=== PATIENT | male | born 1990 | race Two or more races ===

== ENCOUNTER 2017-07-18 14:27 | Inpatient (IN) | payer OTHER ==
[2017-07-18] VITALS (7 sets, daily range): BP systolic 134–166; BP diastolic 87–104
[~2017-07-18] VITALS: Ht 180.3 cm; Wt 83.9 kg
[2017-07-18 14:51] LABS: BASOPHILS % (AUTO) 0.9 % (0.0-2.0); LYMPHOCYTES % (AUTO) 25.2 % (20.0-45.0); MEAN CORPUSCULAR HEMOGLOBIN 31.4 PG (27.0-31.0); MEAN CORPUSCULAR HGB CONC 35.8 G/DL (32.0-36.0); MEAN CORPUSCULAR VOLUME 88 FL (80-99); MEAN PLATELET VOLUME 6.7 FL (6.5-10.1); MONOCYTES % (AUTO) 12.7 % (1.0-10.0); NEUTROPHILS % (AUTO) 60.3 % (45.0-75.0); PLATELET COUNT 215 K/UL (150-450); RED BLOOD COUNT 5.32 M/UL (4.70-6.10); RED CELL DISTRIBUTION WIDTH 10.3 % (11.6-14.8); WHITE BLOOD COUNT 10.4 K/UL (4.8-10.8)
--- NOTE | 2017-07-18 14:52 | Emergency Room Report ---
History of Present Illness General Chief Complaint: Overdose Source: EMS Present Illness HPI 27-year-old male unknown past medical history brought by EMS for suspected overdose. Patient's girlfriend called 911 (was not home the patient) and stated patient had overdose. Unknown what patient took however EMS states that there were medication bottles w/ quetiapine and lithium. Denies seeing any heroin or needles. States that the quetiapine bottle was empty but the lithium bottle still had some pills however did not quantify. EMS states that patient was tachycardic otherwise vital signs were normal. Patient was not responsive. Glucose was 100 in the field. Spoke with girlfriend over the phone. States that patient has never had any suicidal or homicidal ideation however patient has been depressed for the last week. Patient did not endorse any suicidal ideation. To her knowledge patient has been compliant with his medications but states that the Seroquel bottle should not have been empty. Patient has had one psych admission 6 years ago for a manic episode. Girlfriend states that patient has never used any drugs heroin cocaine and alcohol. No other history able to be obtained Allergies: Coded Allergies: UNABLE TO ASSESS (Unverified , 07/18/17) Patient History Past Medical History: unable to obtain Past Surgical History: unable to obtain Pertinent Family History: unable to obtain Nursing Documentation-[facility] History Of Psychiatric Problem: Yes Review of Systems All Other Systems: limited Physical Exam Vital Signs Date Time Temp Pulse Resp B/P (MAP) Pulse Ox O2 Delivery O2 Flow Rate FiO2 07/18/17 14:22 99.0 130 20 108/71 97 Room Air Sp02 EP Interpretation: reviewed, normal General Appearance: normal inspection, other - Young male eyes open, intermittent horizontal nystagmus, nonverbal, moving extremities spontaneously, not following commands Head: normocephalic, atraumatic Eyes: bilateral eye normal inspection, bilateral eye PERRL, bilateral eye EOMI , bilateral eye other - No pinpoint pupils ENT: normal ENT inspection, normal pharynx, moist mucus membranes Neck: normal inspection, full range of motion, supple, no bony tend Respiratory: normal inspection, lungs clear, normal breath sounds, no respiratory distress, no retraction, no wheezing, chest symmetrical Cardiovascular #1: normal inspection, no edema, normal capillary refill, tachycardia Gastrointestinal: normal inspection, non tender, soft, non-distended, no guarding Musculoskeletal: normal inspection, back normal, normal range of motion, non- tender Neurologic: normal inspection, other - No muscle rigidity. Normal tone. Moving extremities spontaneously. Not following commands. not verbal Psychiatric: normal inspection, judgement/insight normal, memory normal Skin: normal inspection, normal color, no rash, warm/dry, well hydrated, normal turgor Medical Decision Making Diagnostic Impression: Primary Impression: Altered mental status Additional Impressions: Drug overdose Tachycardia ER Course 27 yo M with ams, suspected overdose DDX: tox - lithium vs. seroquel, alcohol, asa, tylenol electrolyte disturbance - hyponatremia/hypoglycemia cardiac intracranial - bleed Plan: cbc bmp lfts, tox labs, lithium level, ekg, cxr, CT head, IVF ER course: Labs: utox negative, pending Ideal level was a send out EKG: QTc prolonged 500, tachy 103 CXR: no acute infiltrate / consolidation CT head negative d/w poison control - will follow up patient Patient mental status slowly improving. He now states his name however still drowsy. Patient noted to be intermittently tachycardia to 100-140. Patient received IV fluids. Rash noted on patient's chest, occurs intermittently, Benadryl given. Patients tachycardia improved, from 130s went down to 100-105. Ideal level < 0.30 Disposition: Patient is to be admitted to [facility] D/W hospitalist Dr Ennis Laboratory Tests Test 07/18/17 14:38 07/18/17 14:47 White Blood Count 10.4 K/UL (4.8-10.8) Red Blood Count 5.32 M/UL (4.70-6.10) Hemoglobin 16.7 G/DL (14.2-18.0) Hematocrit 46.6 % (42.0-52.0) Mean Corpuscular Volume 88 FL (80-99) Mean Corpuscular Hemoglobin 31.4 PG (27.0-31.0) H Mean Corpuscular Hemoglobin Concent 35.8 G/DL (32.0-36.0) Red Cell Distribution Width 10.3 % (11.6-14.8) L Platelet Count 215 K/UL (150-450) Mean Platelet Volume 6.7 FL (6.5-10.1) Neutrophils (%) (Auto) 60.3 % (45.0-75.0) Lymphocytes (%) (Auto) 25.2 % (20.0-45.0) Monocytes (%) (Auto) 12.7 % (1.0-10.0) H Eosinophils (%) (Auto) 1.0 % (0.0-3.0) Basophils (%) (Auto) 0.9 % (0.0-2.0) Sodium Level 137 mEQ/L (135-145) Potassium Level 3.3 mEQ/L (3.4-4.9) L Chloride Level 99 mEQ/L (98-107) Carbon Dioxide Level 24 mEQ/L (20-30) Anion Gap 14 (5-15) Blood Urea Nitrogen 10 mg/dL (7-23) Creatinine 1.3 mg/dL (0.7-1.2) H Estimate Glomerular Filtration Rate > 60 mL/min (>60) Glucose Level 143 mg/dL (74-106) H Calcium Level 9.5 mg/dL (8.6-10.2) Total Bilirubin 1.3 mg/dL (0.0-1.2) H Direct Bilirubin 0.2 mg/dL (0.1-0.3) Aspartate Amino Transferase (AST) 16 U/L (5-40) Alanine Aminotransferase (ALT) 8 U/L (3-41) Alkaline Phosphatase 69 U/L (40-129) Total Creatine Kinase 93 U/L (38-174) Total Protein 7.4 g/dL (6.6-8.7) Albumin 4.7 g/dL (3.5-5.2) Globulin 2.7 g/dL Albumin/Globulin Ratio 1.7 (1.0-2.7) Thyroid Stimulating Hormone (TSH) 2.330 uIU/mL (0.300-4.500) Salicylates Level < 1 mg/dL (10-30) L Acetaminophen Level < 10 ug/mL (10-30) L Ideal Level 0.30 MMOL/L (0.5-1.5) Serum Alcohol < 10 mg/dL Urine Opiates Screen Negative (NEGATIVE) Urine Barbiturates Screen Negative (NEGATIVE) Phencyclidine (PCP) Screen Negative (NEGATIVE) Urine Amphetamines Screen Negative (NEGATIVE) Urine Benzodiazepines Screen Negative (NEGATIVE) Urine Cocaine Screen Negative (NEGATIVE) Urine Marijuana (THC) Screen Negative (NEGATIVE) EKG Diagnostic Results Rate: tachycardiac Rhythm: NSR ST Segments: other - prolonged QT Rhythm Strip Diag. Results EP Interpretation: yes Rhythm: NSR, no PVC's, no ectopy Chest X-Ray Diagnostic Results Chest X-Ray Diagnostic Results : # of Views/Limited/Complete: 1 View Indication: Other - ams EP Interpretation: Yes Interpretation: other Impression: No acute disease Interpreting ER Provider: Electronically signed by Ly Elliott M.D. Last Vital Signs Date Time Temp Pulse Resp B/P (MAP) Pulse Ox O2 Delivery O2 Flow Rate FiO2 07/18/17 14:22 99.0 130 20 108/71 97 Room Air Disposition: ADMITTED INPATIENT Condition: Serious Ly Elliott M.D. Jul 18, 2017 14:52
[2017-07-18 15:06] LABS: ACETAMINOPHEN < 10 ug/mL (10-30); ALANINE AMINOTRANSFERASE 8 U/L (3-41); ALBUMIN/GLOBULIN RATIO 1.7 (1.0-2.7); ALCOHOL < 10 mg/dL; ANION GAP 14 (5-15); ASPARTATE AMINO TRANSFERASE 16 U/L (5-40); CALCIUM 9.5 mg/dL (8.6-10.2); CARBON DIOXIDE 24 mEQ/L (20-30); CHLORIDE 99 mEQ/L (98-107); CREATININE 1.3 mg/dL (0.7-1.2); GLOMERULAR FILTRATION RATE > 60 mL/min (>60); HEMOLYSIS 14; POTASSIUM 3.3 mEQ/L (3.4-4.9); SODIUM 137 mEQ/L (135-145); TOTAL PROTEIN 7.4 g/dL (6.6-8.7)
--- NOTE | 2017-07-18 15:28 | Diagnostic Imaging Report ---
Indication: Altered mental status Technique: Contiguous 5 mm thick transaxial imaging of the head obtained in a Siemens Sensation [address] scanner. Soft tissue and bone windows generated. Total Dose length Product (DLP): [address] Dose Index Volume (CTDIvol): 70.38, 0.15 mGy Comparison: none Findings: The size and configuration of the cortical sulci, basal cisterns, and ventricles are within normal limits for age. There is no mass effect, midline shift, or edema identified. There is no evidence of acute hemorrhage or abnormal intra-axial or extra-axial fluid collections. The bones and soft tissues are unremarkable. Impression: No mass effect, edema or acute bleed. The CT scanner at [facility] is accredited by the [employer] and the scans are performed using dose optimization techniques as appropriate to a performed exam including Automatic Exposure control.
--- NOTE | 2017-07-18 15:29 | Diagnostic Imaging Report ---
Indication: Dyspnea Comparison: None A single view chest radiograph was obtained. Findings: Cardiomediastinal appearance is within normal limits for age. Pulmonary vascularity is appropriate. The diaphragmatic contour is smooth and costophrenic angles are sharp. No pleural effusions are identified. The bones are unremarkable. Impression: No acute findings
[2017-07-18 15:30] LABS: BILIRUBIN,DIRECT 0.2 mg/dL (0.1-0.3)
[2017-07-18] MEDS ORDERED: QUETIAPINE FUMA50 MG ORAL (18:18)
[2017-07-18] MEDS ORDERED: LITHIUM CARBON150 MG ORAL (18:18)
[2017-07-18] MEDS ORDERED: DiphenhydrAMINE 50mg/ml Inj IVP ONE (19:30)
[2017-07-18] MEDS ORDERED: Metoprolol Tartrate 50mg tab ORAL SCH (21:30)
[2017-07-18] MEDS: D5 1/2NS 1,000 ML IV SCH (22:00)
[2017-07-19] VITALS (8 sets, daily range): BP systolic 138–161; BP diastolic 93–101
[2017-07-19] MEDS ORDERED: SEROQUEL100 MG ORAL (01:23)
[2017-07-19] MEDS ORDERED: LITHIUM CARBON300 MG ORAL (01:23)
[2017-07-19] MEDS: LORazepam Inj 2mg/ml 1ml IV PRN ×2 (01:53→05:54)
[2017-07-19 07:05] LABS: BASOPHILS % (AUTO) 0.8 % (0.0-2.0); EOSINOPHILS % (AUTO) 0.8 % (0.0-3.0); LYMPHOCYTES % (AUTO) 22.7 % (20.0-45.0); MEAN CORPUSCULAR HEMOGLOBIN 31.9 PG (27.0-31.0); MEAN CORPUSCULAR HGB CONC 35.8 G/DL (32.0-36.0); MEAN CORPUSCULAR VOLUME 89 FL (80-99); MEAN PLATELET VOLUME 6.2 FL (6.5-10.1); MONOCYTES % (AUTO) 10.3 % (1.0-10.0); NEUTROPHILS % (AUTO) 65.5 % (45.0-75.0); PLATELET COUNT 194 K/UL (150-450); RED BLOOD COUNT 4.74 M/UL (4.70-6.10); RED CELL DISTRIBUTION WIDTH 10.7 % (11.6-14.8); WHITE BLOOD COUNT 9.9 K/UL (4.8-10.8)
[2017-07-19 07:26] LABS: ALANINE AMINOTRANSFERASE 10 U/L (3-41); ALBUMIN/GLOBULIN RATIO 1.7 (1.0-2.7); ANION GAP 11 (5-15); ASPARTATE AMINO TRANSFERASE 25 U/L (5-40); CALCIUM 9.1 mg/dL (8.6-10.2); CARBON DIOXIDE 25 mEQ/L (20-30); CHLORIDE 106 mEQ/L (98-107); CREATININE 1.2 mg/dL (0.7-1.2); GLOMERULAR FILTRATION RATE > 60 mL/min (>60); HEMOLYSIS 7; PHOSPHORUS 3.6 mg/dL (2.5-4.8); POTASSIUM 3.8 mEQ/L (3.4-4.9); SODIUM 142 mEQ/L (135-145); TOTAL PROTEIN 6.9 g/dL (6.6-8.7)
[2017-07-19] MEDS: D5 1/2NS 1,000 ML IV SCH (08:48)
[2017-07-19] MEDS ORDERED: LORazepam Inj 2mg/ml 1ml IV PRN (10:30)
[2017-07-19] MEDS ORDERED: D5 1/2NS 1,000 ML IV SCH ×2 (10:30→15:15)
[2017-07-19] MEDS: Metoprolol Tartrate 50mg tab ORAL SCH ×2 (11:12→20:38)
--- NOTE | 2017-07-19 11:23 | Consultation ---
History of Present Illness General Date patient seen: Jul 19, 2017 Time patient seen: 10:00 Chief Complaint: Overdose Referring physician: dr Ennis Reason for Consultation: inpatient management Present Illness HPI 27-year-old male with PMH of depression, bipolar disorder brought by EMS for suspected overdose. Patient's girlfriend called 911 and stated patient had overdose. EMS reported medication bottles with Seroquel and lithium, no heroin or needles were seen on the scene Seroquel bottle was empty but the lithium bottle still had some pills Patient was tachycardic, otherwise vital signs were normal. Patient was not responsive. Glucose was 100 in the field. Girlfriend denied any suicidal or homicidal ideation in the past, but reported that the patient had been depressed for the last week. Patient has had one psych admission 6 years ago for a manic episode. Girlfriend stated that patient has never used any drugs such as heroin cocaine or alcohol. Workup in ED revealed ECG with prolonged QT interval and tachycardia 130-140 CT head no acute intracranial pathology urine tox screen negative K-3.3 Creat-1.3 patient was started on IVF and admitted for further management This am awake, alert, oriented x 4, mother at the bedside denied SI, but reported depressive feelings and stress recently had bar exam, results unknown yet Hx of depression since 8 or 9 grade denied chest pain, SOB, dizziness K stable this am after replacement Creat down to normal with IVF denies chest pain, palpitations, SOB, dizziness HR stable BP still elevated Allergies: Coded Allergies: ALCOHOL (Verified Allergy, Mild, Rash, 07/19/17) ingested ETOH gives patient chest/neck rash Medication History Scheduled Tama Carbonate* (Tama*), 900 MG ORAL DAILY, (Reported) Quetiapine Fumarate* (Seroquel*), 100 MG ORAL DAILY, (Reported) Discontinued Medications Acetaminophen (Acetaminophen), 650 MG PO Q6HR PRN for Mild Pain/Temp > 100.5, ( Reported) Discontinued Reason: MD discontinued med Clonidine Hcl* (Catapres*), 0.1 MG ORAL EVERY 6 HOURS PRN for For High Blood Pressure, (Reported) Discontinued Reason: MD discontinued med Dextrose 5 %-0.45 % Nacl (Dextrose 5%-1/2NS Iv Solution), 1,000 ML IV, (Reported ) Discontinued Reason: MD discontinued med Tama Carbonate* (Tama*), Unknown Dose ORAL EVERY 8 HOURS, (Reported) Discontinued Reason: Prescription changed Lorazepam* (Ativan*), 0.5 MG IV Q4H PRN for For Anxiety, (Reported) Discontinued Reason: MD discontinued med Metoprolol Tartrate* (Metoprolol Tartrate*), 50 MG ORAL EVERY 12 HOURS, ( Reported) Discontinued Reason: MD discontinued med Quetiapine Fumarate* (Quetiapine Fumarate*), 100 MG ORAL unknown, (Reported) Discontinued Reason: Prescription changed Patient History History Provided By: Patient Healthcare decision maker N Resuscitation status Full Code Advanced Directive on File Past Medical/Surgical History Past Medical/Surgical History: (1) Depression Review of Systems Constitutional: Reports: no symptoms Eye: Reports: no symptoms ENT: Reports: no symptoms Respiratory: Reports: no symptoms Cardiovascular: Reports: no symptoms Gastrointestinal: Reports: no symptoms Genitourinary: Reports: no symptoms Skin: Reports: no symptoms Psychiatric: Reports: see HPI Neurological: Reports: no symptoms Endocrine: Reports: no symptoms Hematologic/Lymphatic: Reports: no symptoms Physical Exam General Appearance: WD/WN, no apparent distress, alert Lines, tubes and drains: peripheral HEENT: normocephalic, atraumatic, anicteric, mucous membranes moist, PERRL Neck: non-tender, supple Respiratory/Chest: chest wall non-tender, lungs clear, normal breath sounds, no respiratory distress, no accessory muscle use Cardiovascular/Chest: normal peripheral pulses, normal rate, regular rhythm, no JVD Abdomen: normal bowel sounds, non tender, soft Extremities: normal range of motion, non-tender, no calf tenderness Neurologic: brake shoe rebuilder II-XII grossly normal, no motor/sensory deficits, abnormal gait , alert, oriented x 3, normal mood/affect Musculoskeletal: normal muscle bulk Last 24 Hour Vital Signs Date Time Temp Pulse Resp B/P (MAP) Pulse Ox O2 Delivery O2 Flow Rate FiO2 07/19/17 10:04 98 144/93 07/19/17 07:41 97.9 107 20 138/94 97 Room Air 07/19/17 04:00 93 07/19/17 03:46 97.8 93 20 148/98 96 Room Air 07/18/17 23:47 98.1 96 20 151/101 98 07/18/17 21:58 130 150/100 07/18/17 20:21 98.6 130 22 166/104 95 Room Air 07/18/17 20:12 138 07/18/17 20:11 97.6 108 22 152/90 99 Room Air 07/18/17 19:31 97.6 111 22 152/90 99 Room Air 07/18/17 19:06 135 23 158/90 96 Room Air 07/18/17 18:00 97.9 104 30 142/87 96 Room Air 07/18/17 16:30 96.4 95 22 134/94 96 Room Air 07/18/17 14:30 120 23 Room Air 07/18/17 14:30 120 23 136/87 99 Room Air 07/18/17 14:22 99.0 130 20 108/71 97 Room Air Intake and Output 07/19/17 07/20/17 19:00 07:00 Intake Total 480 ml Balance 480 ml Intake Oral 480 ml # Voids 2 Laboratory Tests Test 07/18/17 14:38 07/18/17 14:47 07/19/17 06:00 White Blood Count 10.4 K/UL (4.8-10.8) 9.9 K/UL (4.8-10.8) Red Blood Count 5.32 M/UL (4.70-6.10) 4.74 M/UL (4.70-6.10) Hemoglobin 16.7 G/DL (14.2-18.0) 15.1 G/DL (14.2-18.0) Hematocrit 46.6 % (42.0-52.0) 42.2 % (42.0-52.0) Mean Corpuscular Volume 88 FL (80-99) 89 FL (80-99) Mean Corpuscular Hemoglobin 31.4 PG (27.0-31.0) H 31.9 PG (27.0-31.0) H Mean Corpuscular Hemoglobin Concent 35.8 G/DL (32.0-36.0) 35.8 G/DL (32.0-36.0) Red Cell Distribution Width 10.3 % (11.6-14.8) L 10.7 % (11.6-14.8) L Platelet Count 215 K/UL (150-450) 194 K/UL (150-450) Mean Platelet Volume 6.7 FL (6.5-10.1) 6.2 FL (6.5-10.1) L Neutrophils (%) (Auto) 60.3 % (45.0-75.0) 65.5 % (45.0-75.0) Lymphocytes (%) (Auto) 25.2 % (20.0-45.0) 22.7 % (20.0-45.0) Monocytes (%) (Auto) 12.7 % (1.0-10.0) H 10.3 % (1.0-10.0) H Eosinophils (%) (Auto) 1.0 % (0.0-3.0) 0.8 % (0.0-3.0) Basophils (%) (Auto) 0.9 % (0.0-2.0) 0.8 % (0.0-2.0) Sodium Level 137 mEQ/L (135-145) 142 mEQ/L (135-145) Potassium Level 3.3 mEQ/L (3.4-4.9) L 3.8 mEQ/L (3.4-4.9) Chloride Level 99 mEQ/L (98-107) 106 mEQ/L (98-107) Carbon Dioxide Level 24 mEQ/L (20-30) 25 mEQ/L (20-30) Anion Gap 14 (5-15) 11 (5-15) Blood Urea Nitrogen 10 mg/dL (7-23) 10 mg/dL (7-23) Creatinine 1.3 mg/dL (0.7-1.2) H 1.2 mg/dL (0.7-1.2) Estimat Glomerular Filtration Rate > 60 mL/min (>60) > 60 mL/min (>60) Glucose Level 143 mg/dL (74-106) H 106 mg/dL (74-106) Calcium Level 9.5 mg/dL (8.6-10.2) 9.1 mg/dL (8.6-10.2) Total Bilirubin 1.3 mg/dL (0.0-1.2) H 0.7 mg/dL (0.0-1.2) Direct Bilirubin 0.2 mg/dL (0.1-0.3) Aspartate Amino Transf (AST/SGOT) 16 U/L (5-40) 25 U/L (5-40) Alanine Aminotransferase (ALT/SGPT) 8 U/L (3-41) 10 U/L (3-41) Alkaline Phosphatase 69 U/L (40-129) 65 U/L (40-129) Total Creatine Kinase 93 U/L (38-174) Total Protein 7.4 g/dL (6.6-8.7) 6.9 g/dL (6.6-8.7) Albumin 4.7 g/dL (3.5-5.2) 4.4 g/dL (3.5-5.2) Globulin 2.7 g/dL 2.5 g/dL Albumin/Globulin Ratio 1.7 (1.0-2.7) 1.7 (1.0-2.7) Thyroid Stimulating Hormone (TSH) 2.330 uIU/mL (0.300-4.500) Salicylates Level < 1 mg/dL (10-30) L Acetaminophen Level < 10 ug/mL (10-30) L Tama Level 0.30 MMOL/L (0.5-1.5) Serum Alcohol < 10 mg/dL Urine Opiates Screen Negative (NEGATIVE) Urine Barbiturates Screen Negative (NEGATIVE) Phencyclidine (PCP) Screen Negative (NEGATIVE) Urine Amphetamines Screen Negative (NEGATIVE) Urine Benzodiazepines Screen Negative (NEGATIVE) Urine Cocaine Screen Negative (NEGATIVE) Urine Marijuana (THC) Screen Negative (NEGATIVE) Phosphorus Level 3.6 mg/dL (2.5-4.8) Magnesium Level 2.0 mg/dL (1.7-2.5) Height (Feet): 5 Height (Inches): 11.00 Weight (Pounds): 185 Medications Current Medications Medications (Trade) Dose Ordered Sig/Andrzej Route PRN Reason Start Time Stop Time Status Last Admin Dose Admin Acetaminophen (Tylenol) 650 mg Q6H PRN ORAL Mild Pain/Temp > 100.5 07/19/17 10:30 08/17/17 10:29 Dextrose (Dextrose 50%) STAT PRN IV Hypoglycemia 07/19/17 10:30 08/17/17 10:29 Dextrose/Sodium Chloride 1,000 ml @ 100 mls/hr Q10H IV 07/19/17 10:30 08/17/17 10:29 Lorazepam (Ativan 2mg/ml 1ml) 0.5 mg Q4H PRN IV Agitation 07/19/17 10:30 07/25/17 10:29 Metoprolol Tartrate (Lopressor) 50 mg Q12HR ORAL 07/19/17 10:30 08/17/17 10:29 Assessment/Plan Assessment/Plan ASSESSMENT acute toxic encephalopathy 2 to drug OD - resolved intentional drug OD ( likely Seroquel ) likely SA depression possible bipolar disorder tachycardia with prolonged QT interval likely due to OD on Seroquel elevated BP hypokalemia - resolved PLAN OF CARE MS floor IVF acute encephalopathy resolved urine tox screen negative CT head negative lithium level subtherapeutic, OD likely on Seroquel tachycardia resolved, on BB, monitor BP, add prn anti HTN no hx of BP tachy and prolonged QT interval - SE of Seroquel need to change to another suitable antipsychotic - as per psych psych eval pending K replaced and stable medically cleared for dc disposition as per psych recommendations case discussed and evaluated by supervising physician Daniel Vergaratony)Jennifer NP Jul 19, 2017 11:23
--- NOTE | 2017-07-19 12:21 | Consultation ---
History of Present Illness General Chief Complaint: Overdose Referring physician: dr Ennis Reason for Consultation: inpatient management Present Illness HPI the pt is a 27 yo male with a history of bipolar d/o, no hx of substance use disorder. the pt is s/p sa od on 25 pills of seroquel. the pt has several stressors and not stablized eventhough he says he is not suicidal/ the pt is still depressed and anxious at high risk to attempt suicide again/ spoke with charge nurse Michele to admit to psych [facility]. Allergies: Coded Allergies: ALCOHOL (Verified Allergy, Mild, Rash, 07/19/17) ingested ETOH gives patient chest/neck rash Medication History Scheduled Dassel Carbonate* (Dassel*), 900 MG ORAL DAILY, (Reported) Quetiapine Fumarate* (Seroquel*), 100 MG ORAL DAILY, (Reported) Discontinued Medications Dassel Carbonate* (Dassel*), Unknown Dose ORAL EVERY 8 HOURS, (Reported) Discontinued Reason: Prescription changed Quetiapine Fumarate* (Quetiapine Fumarate*), 100 MG ORAL unknown, (Reported) Discontinued Reason: Prescription changed Patient History History Provided By: Patient, Family Member, Medical Record, PMD Healthcare decision maker N Resuscitation status Full Code Advanced Directive on File Past Medical/Surgical History Past Medical/Surgical History: (1) Prolonged Q-T interval on ECG (2) Overdose of antipsychotic (3) Altered mental status (4) Drug overdose (5) Tachycardia (6) Depression Review of Systems Psychiatric: Reports: prior hx, anxiety, depressed feelings, emotional problems , SI Physical Exam General Appearance: no apparent distress, alert, thin Neurologic: alert, oriented x 3, responsive, depressed affect Last 24 Hour Vital Signs Date Time Temp Pulse Resp B/P (MAP) Pulse Ox O2 Delivery O2 Flow Rate FiO2 07/19/17 11:12 98 144/93 07/19/17 10:04 98 144/93 07/19/17 07:41 97.9 107 20 138/94 97 Room Air 07/19/17 04:00 93 07/19/17 03:46 97.8 93 20 148/98 96 Room Air 07/18/17 23:47 98.1 96 20 151/101 98 07/18/17 21:58 130 150/100 07/18/17 20:21 98.6 130 22 166/104 95 Room Air 8/24/17 20:12 138 07/18/17 20:11 97.6 108 22 152/90 99 Room Air 07/18/17 19:31 97.6 111 22 152/90 99 Room Air 07/18/17 19:06 135 23 158/90 96 Room Air 07/18/17 18:00 97.9 104 30 142/87 96 Room Air 07/18/17 16:30 96.4 95 22 134/94 96 Room Air 07/18/17 14:30 120 23 Room Air 07/18/17 14:30 120 23 136/87 99 Room Air 07/18/17 14:22 99.0 130 20 108/71 97 Room Air Intake and Output 07/19/17 07/20/17 19:00 07:00 Intake Total 480 ml Balance 480 ml Intake Oral 480 ml # Voids 2 Laboratory Tests Test 07/18/17 14:38 07/18/17 14:47 07/19/17 06:00 White Blood Count 10.4 K/UL (4.8-10.8) 9.9 K/UL (4.8-10.8) Red Blood Count 5.32 M/UL (4.70-6.10) 4.74 M/UL (4.70-6.10) Hemoglobin 16.7 G/DL (14.2-18.0) 15.1 G/DL (14.2-18.0) Hematocrit 46.6 % (42.0-52.0) 42.2 % (42.0-52.0) Mean Corpuscular Volume 88 FL (80-99) 89 FL (80-99) Mean Corpuscular Hemoglobin 31.4 PG (27.0-31.0) H 31.9 PG (27.0-31.0) H Mean Corpuscular Hemoglobin Concent 35.8 G/DL (32.0-36.0) 35.8 G/DL (32.0-36.0) Red Cell Distribution Width 10.3 % (11.6-14.8) L 10.7 % (11.6-14.8) L Platelet Count 215 K/UL (150-450) 194 K/UL (150-450) Mean Platelet Volume 6.7 FL (6.5-10.1) 6.2 FL (6.5-10.1) L Neutrophils (%) (Auto) 60.3 % (45.0-75.0) 65.5 % (45.0-75.0) Lymphocytes (%) (Auto) 25.2 % (20.0-45.0) 22.7 % (20.0-45.0) Monocytes (%) (Auto) 12.7 % (1.0-10.0) H 10.3 % (1.0-10.0) H Eosinophils (%) (Auto) 1.0 % (0.0-3.0) 0.8 % (0.0-3.0) Basophils (%) (Auto) 0.9 % (0.0-2.0) 0.8 % (0.0-2.0) Sodium Level 137 mEQ/L (135-145) 142 mEQ/L (135-145) Potassium Level 3.3 mEQ/L (3.4-4.9) L 3.8 mEQ/L (3.4-4.9) Chloride Level 99 mEQ/L (98-107) 106 mEQ/L (98-107) Carbon Dioxide Level 24 mEQ/L (20-30) 25 mEQ/L (20-30) Anion Gap 14 (5-15) 11 (5-15) Blood Urea Nitrogen 10 mg/dL (7-23) 10 mg/dL (7-23) Creatinine 1.3 mg/dL (0.7-1.2) H 1.2 mg/dL (0.7-1.2) Estimat Glomerular Filtration Rate > 60 mL/min (>60) > 60 mL/min (>60) Glucose Level 143 mg/dL (74-106) H 106 mg/dL (74-106) Calcium Level 9.5 mg/dL (8.6-10.2) 9.1 mg/dL (8.6-10.2) Total Bilirubin 1.3 mg/dL (0.0-1.2) H 0.7 mg/dL (0.0-1.2) Direct Bilirubin 0.2 mg/dL (0.1-0.3) Aspartate Amino Transf (AST/SGOT) 16 U/L (5-40) 25 U/L (5-40) Alanine Aminotransferase (ALT/SGPT) 8 U/L (3-41) 10 U/L (3-41) Alkaline Phosphatase 69 U/L (40-129) 65 U/L (40-129) Total Creatine Kinase 93 U/L (38-174) Total Protein 7.4 g/dL (6.6-8.7) 6.9 g/dL (6.6-8.7) Albumin 4.7 g/dL (3.5-5.2) 4.4 g/dL (3.5-5.2) Globulin 2.7 g/dL 2.5 g/dL Albumin/Globulin Ratio 1.7 (1.0-2.7) 1.7 (1.0-2.7) Thyroid Stimulating Hormone (TSH) 2.330 uIU/mL (0.300-4.500) Salicylates Level < 1 mg/dL (10-30) L Acetaminophen Level < 10 ug/mL (10-30) L Dassel Level 0.30 MMOL/L (0.5-1.5) Serum Alcohol < 10 mg/dL Urine Opiates Screen Negative (NEGATIVE) Urine Barbiturates Screen Negative (NEGATIVE) Phencyclidine (PCP) Screen Negative (NEGATIVE) Urine Amphetamines Screen Negative (NEGATIVE) Urine Benzodiazepines Screen Negative (NEGATIVE) Urine Cocaine Screen Negative (NEGATIVE) Urine Marijuana (THC) Screen Negative (NEGATIVE) Phosphorus Level 3.6 mg/dL (2.5-4.8) Magnesium Level 2.0 mg/dL (1.7-2.5) Height (Feet): 5 Height (Inches): 11.00 Weight (Pounds): 185 Medications Current Medications Medications (Trade) Dose Ordered Sig/Andrzej Route PRN Reason Start Time Stop Time Status Last Admin Dose Admin Acetaminophen (Tylenol) 650 mg Q6H PRN ORAL Mild Pain/Temp > 100.5 07/19/17 10:30 08/17/17 10:29 Dextrose (Dextrose 50%) STAT PRN IV Hypoglycemia 07/19/17 10:30 08/17/17 10:29 Dextrose/Sodium Chloride 1,000 ml @ 75 mls/hr [id number] IV 07/20/17 12:00 08/19/17 11:59 Lorazepam (Ativan 2mg/ml 1ml) 0.5 mg Q4H PRN IV Agitation 07/19/17 10:30 07/25/17 10:29 Metoprolol Tartrate (Lopressor) 50 mg Q12HR ORAL 07/19/17 10:30 08/17/17 10:29 07/19/17 11:12 Assessment/Plan Status: not improved, unchanged Assessment/Plan Bipolar d/o, s/p SA -pet team [id number] -psych [facility] the pt is at high risk to re-attempt -did agree to go with family however currently fighting with parents and would need to re-stabilize Terell Davis M.D. Jul 19, 2017 12:21
--- NOTE | 2017-07-19 16:40 | History & Physical ---
History and Physical History & Physicial Dictated for Int Med-Dr Ennis no. [id number]. PATEL OKEEFE Jul 19, 2017 16:40
[2017-07-19] MEDS ORDERED: ACETAMINOPHEN500 M7 PO (22:05)
[2017-07-19] MEDS ORDERED: CATAPRES0.1 MG ORAL (22:06)
[2017-07-19] MEDS ORDERED: DEXTROSE 5% IV (22:08)
[2017-07-19] MEDS ORDERED: METOPROLOL TART50 M1 ORAL (22:09)
[2017-07-19] MEDS ORDERED: ATIVAN2 MG/1 ML IV (22:09)
[2017-07-19] MEDS ORDERED: D5 1/2NS 1000ml IV ONE (23:34)
--- NOTE | 2017-07-20 00:30 | History and Physical Report ---
DATE OF ADMISSION: 07/19/2017 CHIEF COMPLAINT: The patient is a 27-year-old white male who presents with a chief complaint of intentional overdose. HISTORY OF PRESENT ILLNESS: The patient is a law student. The patient states his girlfriend is out of the country. The patient states he was studying for the bar for the last month or so. The patient states he has been alone much at that time. The patient has a history of bipolar depression. The patient states he wanted to sleep for about 12 hours. The patient read on the internet that the best way to sleep was to take Seroquel of an unknown dose and wine. The patient states that yesterday on 07/18/2017 approximately at 4 a.m., he took an unknown number of Seroquel tablets. The patient then drank a bottle of wine. The patient then apparently passed out. The patient's girlfriend became concerned when she could not reach him. The patient's girlfriend called the patient's parents who then called 911. The patient presented to [facility] emergency room. The patient was admitted for intentional overdose of Seroquel and alcohol. PAST MEDICAL HISTORY: Significant for type 1 bipolar disorder. PAST SURGICAL HISTORY: The patient denies. CURRENT MEDICATIONS: 1. Carrington 450 mg two tablets p.o. nightly. 2. Seroquel 100 mg one tablet p.o. nightly. ALLERGIES: No known drug allergies. SOCIAL HISTORY: The patient is unemployed. The patient just finished law school in March 2017. The patient has a steady girlfriend. The patient denies tobacco use. The patient admits to alcohol use of approximately four drinks per week. REVIEW OF SYSTEMS: Constitutional: The patient denies weight loss or weight gain. The patient denies fevers or chills. HEENT: The patient denies ear or throat pain. The patient denies headache. Cardiovascular: The patient denies palpitations or chest pain. Chest: The patient denies wheeze or shortness of breath. Abdomen: The patient denies nausea, vomiting, diarrhea, or constipation. Genitourinary: The patient denies dysuria or increased frequency of urination. Neuromuscular: The patient denies seizures or generalized weakness. PHYSICAL EXAMINATION: VITAL SIGNS: Temperature 97.6 degrees, respirations 21, pulse 93, and blood pressure 151/97. GENERAL: The patient is a well-developed and well-nourished white male, in no apparent distress. HEENT: Eyes, pupils are equal and responsive to light and accommodation. Extraocular movements are intact. NECK: Supple without lymphadenopathy. CHEST: Lungs are clear to auscultation bilaterally without wheezes or rales. CARDIOVASCULAR: Regular rhythm and rate. S1 and S2 are normal without murmurs, rubs, or gallops. ABDOMEN: Soft, nontender, and nondistended. Positive bowel sounds. No evidence of hepatosplenomegaly. Currently, no rebound or guarding noted. EXTREMITIES: Negative for clubbing, cyanosis, or edema. RECTAL/GENITAL: Refused. NEUROLOGIC: Cranial nerves II to XII are grossly intact without focal deficits. Motor strength is 5/5 bilaterally. Deep tendon reflexes are 2+ plantar. LABORATORY STUDIES: WBC 10.4, hemoglobin 16.2, hematocrit 46.6, and platelets 215,000. Sodium 137, potassium 3.3, chloride 99, CO2 24, BUN 10, creatinine 1.3, and glucose 143. Toxicology screen was negative for drug abuse. Carrington level was 0.3. ASSESSMENT: This is a 27-year-old white male. 1. Suicide attempt. 2. Intentional overdose. 3. Bipolar 1 disorder. 4. Major depression. TREATMENT: Suicide attempt/overdose/bipolar 1/major depression. A psychiatric consultation has been obtained with Dr. Davis. The patient will require a PET evaluation. The patient may require transfer to locked inpatient facility for psychiatric disorders. This will be determined by the PET team when the evaluation occurs. Jin Cooper M.D. DR: JEFFREY JOB#: [id number] CC:
[2017-07-20] MEDS ORDERED: D5 1/2NS 1,000 ML IV SCH (12:00)
--- NOTE | 2017-07-22 08:27 | Discharge Summary ---
Discharge Summary Hospital Course Date of Admission Jul 18, 2017 at 15:38 Date of Discharge Jul 19, 2017 at 23:35 Admitting Diagnosis AMS,OVERDOSE HPI Navin Canales is a 27 year old male who was admitted on Jul 18, 2017 at 15: 38 for Altered Mental Status,Overdose Hospital Course dc summary #[id number] Discharge Medications Continued Medications: Clint Carbonate* (Clint*) 300 Mg Capsule 900 MG ORAL DAILY, CAP 0 Refills Discontinued Medications: Acetaminophen (Acetaminophen) 500 Mg Capsule 650 MG PO Q6HR PRN for Mild Pain/Temp > 100.5, CAP Clonidine Hcl* (Catapres*) 0.1 Mg Tablet 0.1 MG ORAL EVERY 6 HOURS PRN for For High Blood Pressure, TAB Dextrose 5 %-0.45 % Nacl (Dextrose 5%-1/2NS Iv Solution) 500 Ml Iv.soln 1000 ML IV Lorazepam* (Ativan*) 2 Mg/1 Ml Vial 0.5 MG IV Q4H PRN for For Anxiety, VIAL Metoprolol Tartrate* (Metoprolol Tartrate*) 50 Mg Tablet 50 MG ORAL EVERY 12 HOURS, TAB Discharge Condition Upon Discharge: stable Discharge Disposition Patient was discharged to Psychiatric Facility ([id number]) Discharge Diagnoses: Daniel (Candace)Jennifer NP Jul 22, 2017 08:27
--- NOTE | 2017-07-23 06:45 | Discharge Summary 2 SIG ---
DATE OF ADMISSION: 07/18/2017 DATE OF DISCHARGE: 07/19/2017 REASON FOR ADMISSION: The patient is a 27-year-old male with history of depression and bipolar disorder, brought to the emergency room for suspected overdose on his psychiatric medication. The patient taken Seroquel and lithium at home and Seroquel bottle was empty. [place] still has some pills. The patient was tachycardic and unresponsive. Otherwise, vital signs were stable. Blood sugar was 100 in the field. Girlfriend denied any suicidal or homicidal ideation in the past, but reported that the patient was depressed and the patient had psychiatric admission 6 years ago for manic episode. There is no history of drug abuse such as heroin, cocaine, or alcohol. Workup in the emergency department revealed EKG with prolonged QT interval and tachycardia [address] of the head revealed no acute intracranial pathology. Urine tox screen was negative. Potassium was 3.3. Creatinine was 1.3. The patient was started on IV fluids and admitted for further management. ADMITTING DIAGNOSES: 1. Acute toxic encephalopathy secondary to drug overdose. 2. Intentional drug overdose. 3. Likely suicidal attempt. 4. Depression. 5. Bipolar disorder. 6. Tachycardia with prolonged QT interval likely due to overdose on Seroquel. 7. Elevated blood pressure. 8. Hypokalemia. Of note, potassium was 3.3 in the emergency room. HOSPITAL COURSE: The patient was admitted to Med/Surg floor. Next morning, the patient was awake, alert, and oriented x4. Mother at the bedside. Creatinine stable after replacement. The patient is on the IV fluids. Creatinine down to normal. He denied chest pain, shortness of breath, palpitation, and dizziness. Blood pressure was still elevated. Started on clonidine as needed. Awaiting for psychiatric evaluation. Psychiatrist seen and evaluated the patient and the patient to be at high risk for another suicidal attempt. She requested PET team evaluation, placed for 5150 and recommended to transfer the patient to psychiatric hospital. Subsequently, licensed clinical social worker and renal case manager were involved in the care of this patient. Placement was [facility] at [facility]. PET team evaluated the patient. The patient was medically cleared for transfer to psychiatric facility. Hold on Seroquel due to prolonged QT interval. As for now, the patient was stable for transfer. DISCHARGE DIAGNOSES: 1. Acute toxic encephalopathy secondary to drug overdose - resolved. 2. Intentional drug overdose. 3. Suicidal attempt. 4. Depression. 5. Bipolar disorder. 6. Tachycardia with prolonged QT interval likely secondary to overdose on Seroquel, resolved. 7. Elevated blood pressure, resolved. 8. Hypokalemia, resolved. DISPOSITION: The patient was transferred to psychiatric facility for inpatient psychiatric hospitalization. FOLLOWUP: Follow up with medical doctor and psychiatrist at the facility. DISCHARGE MEDICATIONS: See medication reconciliation list. Harish Ennis M.D. I have been assigned to dictate discharge summary on this account and I was not involved in the patient's management. Jennifer [facility] N.[place] DR: JAZMINE JOB#: [id number] CC:
--- NOTE | 2017-07-23 15:50 | Cardiology Report ---
APPROVED REPORT EKG Measurement Heart [id number] ID [id number] Normal sinus rhythm Normal ECG
--- NOTE | 2017-07-23 15:55 | Cardiology Report ---
APPROVED REPORT EKG Measurement Heart [id number] Sinus tachycardia Otherwise normal ECG
== END 2017-07-19 23:35 | DRG 917 ==
LOC: EDBD 14:27 → EMR 15:03 → 2E 15:38 → EDBEDREQ 17:42 → 4E 07-19 09:41
DX: T43.592A Poisoning by other antipsychotics and neuroleptics, intentional self-harm, initial encounter (principal); G92 Toxic encephalopathy; F31.9 Bipolar disorder, unspecified; I45.81 Long QT syndrome; T56.892A Toxic effect of other metals, intentional self-harm, initial encounter; T51.0X2A Toxic effect of ethanol, intentional self-harm, initial encounter; Y92.009 Unspecified place in unspecified non-institutional (private) residence as the place of occurrence of the external cause; R00.0 Tachycardia, unspecified; E87.6 Hypokalemia; R03.0 Elevated blood-pressure reading, without diagnosis of hypertension
CPT/HCPCS: 36415; 70450; 71010; 80053; 80178; 80300; 80329; 82248; 82550; 82962; 83735; 84100; 84443; 85025; 93005; 99285